=== PATIENT | female | born 1960 | race Caucasian/White ===

== ENCOUNTER 2019-11-18 08:04 | Outpatient (CLI) | payer OTHER, SELFPAY ==
--- NOTE | ~2019-11-18 | MM_ITS ---
EXAMINATION: MM screening jannie BI w guilherme HISTORY: Screening mammogram TECHNIQUE: Craniocaudal and mediolateral oblique 3-D tomosynthesis images were obtained and synthetic 2-D images were generated. CAD analysis was submitted and interpreted. COMPARISON: Comparison to multiple prior studies sequentially, with oldest reviewed study dated 06/2013. BREAST PARENCHYMAL COMPOSITION: The breasts are heterogeneously dense, which may obscure small masses . FINDINGS: There is a focal mass in the upper outer quadrant of the right breast measuringr approximat chaim 5 mm. The left breast is stable without evidence for malignancy. IMPRESSION: 1. New 5 mm mass right breast, upper outer quadrant. 2. Additional mammographic views and possible breast ultrasound are recommended. BI-RADS Category 0: Incomplete: Needs additional imaging evaluation. Reviewed, dictated and finalized at location A. IMPRESSION: 1. New 5 mm mass right breast, upper outer quadrant. 2. Additional mammographic views and possible breast ultrasound are recommended . BI-RADS Category 0: Incomplete: Needs additional imaging evaluation.
== END 2019-11-18 08:05 | disposition home or self-care (01) ==
PROVIDERS: PCP Family Medicine; Visit Provider Nurse Practitioner Family
DX: Z12.31 Encounter for screening mammogram for malignant neoplasm of breast (principal); R92.8 Other abnormal and inconclusive findings on diagnostic imaging of breast
CPT/HCPCS: 77063; 77067

== ENCOUNTER 2019-12-15 11:44 | Outpatient (CLI) | payer OTHER, SELFPAY ==
--- NOTE | ~2019-12-15 | MMUS_ITS ---
EXAMINATION: MM diagnostic mammo unilat RT, US breast RT complete HISTORY: New right 5 mm mass TECHNIQUE: Additional 3-D tomosynthesis images of the right breast were performed and synthetic 2-D i mages were generated. CAD analysis was submitted and interpreted. High resolution breast ultrasound w as performed. COMPARISON: 07/18/2018 bilateral digital screening mammogram FINDINGS: MAMMOGRAPHIC FINDINGS: 3.8 x 5.5 mm circumscribed low density opacity in the posterior aspect of the outer mid right breast. The mammographic appearance is benign. There is heterogeneously dense fibroglandular stroma, which may obscure masses. ULTRASOUND: 12:00 near nipple: 3.5 mm rounded sonolucency with through transmission, consistent with small cyst 3:00 subareolar area: Parallel circumscribed hypoechoic solid mass measuring 11.6 x 6 x 12 mm, with a djacent vascularity. Ultrasound-guided biopsy is recommended. 9:00 4 cm from nipple: Benign-appearing 4.7 x 3 x 5 mm lymph node IMPRESSION: 1. 12 mm solid lesion at 3:00 subareolar area; consider ultrasound-guided biopsy 2. Ultrasound-guided biopsy of 3:00 subareolar solid lesion is recommended BI-RADS Category 4A Reviewed, dictated and finalized at location A. IMPRESSION: 1. 12 mm solid lesion at 3:00 subareolar area; consider ultrasound-guided biops y 2. Ultrasound-guided biopsy of 3:00 subareolar solid lesion is recommended BI-RADS Category 4A
== END 2019-12-15 11:45 | disposition home or self-care (01) ==
PROVIDERS: PCP Family Medicine; Visit Provider Obstetrics & Gynecology Gynecology
DX: R92.8 Other abnormal and inconclusive findings on diagnostic imaging of breast (principal)
CPT/HCPCS: 76641; 77065

== ENCOUNTER → 2020-07-18 12:41 | Outpatient (CLI) | payer OTHER, SELFPAY ==
--- NOTE | ~2020-07-18 | CT_ITS ---
EXAMINATION: CT abdomen pelvis wo/w con DATE: 07/18/2020 13:28 INDICATION: Hematuria TECHNIQUE: Computed tomography (CT) of the abdomen and pelvis was performed without intravenous contr ast. CT of the abdomen and pelvis was then performed with a total of 130 mL Omnipaque 350 intravenous contrast using a double-bolus technique for simultaneous opacification of the renal parenchyma and r enal collecting system. The dose-length product (DLP) was 1163.76 mGy-cm. Automated exposure control and iterative reconstruction technique were employed. COMPARISON: None FINDINGS: The lung bases are clear. The heart size is normal. There is a 3 mm cyst in the liver dome. The pancreas, gallbladder, and adrenal glands are normal. This spleen is diminutive with multiple sp lenules, possibly related to prior trauma. There is a 3 mm nonobstructing stone of the left kidney lo wer pole. No stones are identified in the ureters or bladder. There is no hydronephrosis or hydrouret er. No suspicious renal or urothelial lesion is identified. There is a fat-containing umbilical herni a. Also seen is a small midline ventral hernia below the umbilicus containing fat. Moderate lumbar sp ondylosis is noted. No pathologically enlarged abdominal or pelvic lymph nodes are identified. There is no free intraperitoneal gas or evidence of bowel obstruction. IMPRESSION: 1. 3 mm nonobstructing left kidney stone. No suspicious renal or urothelial lesion identified. No hyd ronephrosis or hydroureter. Reviewed, dictated and finalized at location A. NESS CONTROL MANAGER IMPRESSION: 1. 3 mm nonobstructing left kidney stone. No suspicious renal or urothelial les ion identified. No hydronephrosis or hydroureter.
[2020-07-18 13:03] LABS: Estimated Glomerular Filt Rate > 60
== END ==
PROVIDERS: PCP Physician Assistant Medical; Visit Provider Nurse Practitioner Family
DX: R31.9 Hematuria, unspecified (principal); N20.0 Calculus of kidney
CPT/HCPCS: 74178; Q9967

== ENCOUNTER 2021-11-08 01:20 | Day surgery (SDC) | payer OTHER, SELFPAY ==
[2021-10-20 13:14] VITALS: BMI 20.5
--- NOTE | 2021-11-07 15:37 | PM.HPGS ---
History of Present Illness History of Present Illness Consent: Risks, benefits, and alternatives have been discussed and questions answered. Patient agrees to proceed with procedure. Chief complaint: neoplasm screening Narrative: Lidia Salguero is a 61 year old female who is referred for colon cancer screening. Her last colonoscopy was 13 years ago, at which time she had 1 adenomatous polyp removed. Review of Systems Review of Systems: All systems reviewed & are unremarkable except as noted in HPI and below PMFSH Past Medical History Medical History BMI 25.0-25.9,adult Surgical History Surgical History H/O section H/O splenectomy H/O: hysterectomy Family History Family History Mother Lymphoma Sibling Breast cancer Father Parkinson disease Social History Social History Smoking packs per day: 0.5 Smoking cigarettes per day: 10.0 Years smoked: 20 Smoking pack-years: 10.00 Smoking status: Former smoker Tobacco type: cigarettes Smoking end date: 05/20/07 Alcohol intake: current Alcohol use details: one drink per month Substance use: never Substance use type: does not use Living arrangements: alone 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 Gender identity (if verbalized by the patient): Female Spiritual care concerns: No Meds Home Medications and Allergies Home Medications Medication Instructions Recorded Confirmed Type No Home Medications 11/08/21 11/08/21 History Allergies Allergy/AdvReac Type Severity Reaction Status Date / Time No Known Allergies Allergy Unknown Verified 11/08/21 07:12 Exam Resp: Auscultation: clear to auscultation bilaterally Cardio: Rate: regular rate Rhythm: regular rhythm GI: GI Palp: Yes Soft to palpation and No Tenderness to palpation present (GI) Assessment and Plan Assessment and plan (1) Screening for malignant neoplasm of colon: Code(s): Z12.11 - Encounter for screening for malignant neoplasm of colon Status: Acute Assessment and Plan: Colonoscopy with possible biopsy or polypectomy or cautery or injection of substances.
[2021-11-08 07:14] VITALS: BP 149/81; PULSE 85; RESP 16; TEMP 36.4; O2SAT 99; BMI 20.7
[2021-11-08] MEDS: LACTATED RINGERS 1,000 ML 150 ML IV CONT (07:23)
--- NOTE | 2021-11-08 07:41 | WPDANESEPPF ---
Anes - Initial Pre Proc Eval Procedure: Operation Date: 11/08/21 08:45 Proposed Procedures p Screening Colonoscopy - Hank Bridges MD Date/Time: 11/08/21 07:41 Surgeon: Hank Bridges MD Pre Op Diagnosis: neoplasm screening Patient Data Age: 61 Gender: F Height: 1.75 m Weight: 63.5 kg Last Vital Signs Temp 36.4 C 11/08/21 07:14 Pulse 85 11/08/21 07:14 Resp 16 11/08/21 07:14 BP 149/81 H 11/08/21 07:14 Pulse Ox 99 11/08/21 07:14 O2 Del Method Room Air 11/08/21 07:14 Allergies Allergy/AdvReac Type Severity Reaction Status Date / Time No Known Allergies Allergy Unknown Verified 11/08/21 07:12 Home Medications Medication Instructions Recorded Confirmed Type No Home Medications 11/08/21 11/08/21 History Patient hx anesthesia problems: none Family hx anesthesia problems: none Results Review: All pre-operative results and documents have been reviewed as part of the pre-operative evaluation. [facility] Past Medical History Medical History BMI 25.0-25.9,adult Surgical History Surgical History H/O section H/O splenectomy H/O: hysterectomy Family History Family History Mother Lymphoma Sibling Breast cancer Father Parkinson disease Social History Social History Smoking packs per day: 0.5 Smoking cigarettes per day: 10.0 Years smoked: 20 Smoking pack-years: 10.00 Smoking status: Former smoker Tobacco type: cigarettes Smoking end date: 05/20/07 Alcohol intake: current Alcohol use details: one drink per month Substance use: never Substance use type: does not use Living arrangements: alone 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 Informed Consent: The patient's anesthetic plan and its attendant risks and benefits were discussed with the patient/family/POA. Questions were solicited and answers provided to the satisfaction of the patient/family/POA.
[2021-11-08 08:58] VITALS: BP 116/63; PULSE 74; RESP 17; O2SAT 98
[2021-11-08 09:08] VITALS: BP 138/88; PULSE 83; RESP 17; O2SAT 100
[2021-11-08 09:18] VITALS: BP 134/92; PULSE 83; RESP 19; O2SAT 100
--- NOTE | 2021-11-08 09:58 | SUR.PHASEII ---
pts had a drs appt, causing delay in picking up pt. left at [id number]
== END 2021-11-08 09:43 | disposition home or self-care (01) ==
PROVIDERS: PCP Family Medicine; Visit Provider Internal Medicine Gastroenterology
PROC: 0DJD8ZZ Inspection of Lower Intestinal Tract, Via Natural or Artificial Opening Endoscopic (ICD-10-PCS; CPT 45378; principal; 2021-11-08 08:45)
DX: Z12.11 Encounter for screening for malignant neoplasm of colon (principal); K64.8 Other hemorrhoids; K63.5 Polyp of colon; Z87.891 Personal history of nicotine dependence
CPT/HCPCS: 45380; 88305; J2704; J7120

== ENCOUNTER 2023-10-16 15:04 | Outpatient (CLI) | payer OTHER, SELFPAY ==
[2023-10-16 15:19] LABS: Basophils Absolute Auto 0.2 K/mm3 (0.0-0.1); Basophils Percent Auto 1.6 % (0.2-1.2); Eosinophils Absolute Auto 0.4 K/mm3 (0-0.3); Eosinophils Percent Auto 4.5 % (0-4.4); Hemoglobin 13.3 g/dL (12.0-15.0); Immature Granulocyte Absolute 0.02 K/mm3 (0.00-0.031); Immature Granulocyte Percent A 0.2 % (0-0.5); Lymphocytes Absolute Auto 2.82 K/mm3 (0.9-3.2); Lymphocytes Percent Auto 28.9 % (18.3-44.2); Mean Corpuscular HGB Conc 31.7 g/dl (32-36); Mean Corpuscular Volume 91.5 fl (80-100); Mean Platelet Volume 8.4 fl (7.4-10.4); Monocytes Absolute Auto 0.9 K/mm3 (0.1-0.6); Monocytes Percent Auto 9.1 % (2.6-8.5); Neutrophils Absolute Auto 5.4 K/mm3 (1.3-6.7); Neutrophils Percent Auto 55.7 % (45.5-73.1); Platelet Count Result 555 k/mm3 (150-375); Red Blood Count 4.59 M/mm3 (4.2-5.4); White Blood Count 9.8 K/mm3 (4.5-10.0)
[2023-10-16 16:55] LABS: Erythrocyte Sedimentation Rate 12 mm/hr (0-20)
[2023-10-16 18:41] LABS: Iron 62 ug/dL (37-170)
[2023-10-16 18:51] LABS: Percent Iron Saturation 16 % (20-50)
[2023-10-16 18:56] LABS: Alanine Aminotransferase 21 U/L (6-35); Albumin Level 4.6 g/dL (3.5-5.1); Alkaline Phosphatase 73 U/L (38-126); Anion Gap 10 mmol/L (4-12); Aspartate Amino Transferase 26 U/L (14-36); Bilirubin,Total 0.3 mg/dL (0.2-1.3); Blood Urea Nitrogen 19 mg/dL (7-17); CRP < 0.5 mg/dL (<1.0); Calcium 9.4 mg/dL (8.4-10.2); Carbon Dioxide 27 mmol/L (22-30); Chloride 104 mmol/L (98-107); Estimated Glomerular Filt Rate > 60; Glucose 98 mg/dL (65-110); Sodium 141 mmol/L (137-145)
[2023-10-24 00:18] LABS: Block/Specimen ID NG; JAK2 V617F Mutation NOT DETECTED (NOT DETECTED); Specimen Source BLOOD
== END 2023-10-16 15:05 | disposition home or self-care (01) ==
LOC: ANHLAB 15:06
PROVIDERS: Nurse Practitioner Family; PCP Family Medicine; Visit Provider Internal Medicine Hematology & Oncology
DX: D47.3 Essential (hemorrhagic) thrombocythemia (principal); D50.9 Iron deficiency anemia, unspecified
CPT/HCPCS: 36415; 80053; 81270; 82728; 83540; 83550; 85025; 85652; 86140

== ENCOUNTER 2023-12-24 13:03 | Outpatient (CLI) | payer OTHER, SELFPAY ==
[2023-12-24 13:16] LABS: Basophils Absolute Auto 0.1 K/mm3 (0.0-0.1); Basophils Percent Auto 1.3 % (0.2-1.2); Eosinophils Absolute Auto 0.3 K/mm3 (0-0.3); Eosinophils Percent Auto 3.6 % (0-4.4); Hematocrit 41.5 % (37.0-47.0); Hemoglobin 13.2 g/dL (12.0-15.0); Immature Granulocyte Absolute 0.03 K/mm3 (0.00-0.031); Immature Granulocyte Percent A 0.3 % (0-0.5); Lymphocytes Absolute Auto 3.13 K/mm3 (0.9-3.2); Lymphocytes Percent Auto 34.9 % (18.3-44.2); Mean Corpuscular HGB Conc 31.8 g/dl (32-36); Mean Corpuscular Hemoglobin 29.5 pg (26-34); Mean Corpuscular Volume 92.8 fl (80-100); Mean Platelet Volume 8.4 fl (7.4-10.4); Monocytes Absolute Auto 1.1 K/mm3 (0.1-0.6); Monocytes Percent Auto 12.5 % (2.6-8.5); Neutrophils Absolute Auto 4.3 K/mm3 (1.3-6.7); Neutrophils Percent Auto 47.4 % (45.5-73.1); Platelet Count Result 517 k/mm3 (150-375); Red Blood Count 4.47 M/mm3 (4.2-5.4); Red Cell Distribution Width 13.4 % (11.5-14.5)
[2023-12-24 16:36] LABS: Iron 98 ug/dL (37-170)
[2023-12-24 16:48] LABS: Percent Iron Saturation 26 % (20-50)
== END 2023-12-24 13:04 | disposition home or self-care (01) ==
LOC: ANHLAB 13:04
PROVIDERS: Nurse Practitioner Family; PCP Family Medicine; Visit Provider Internal Medicine Hematology & Oncology
DX: D47.3 Essential (hemorrhagic) thrombocythemia (principal)
CPT/HCPCS: 36415; 82728; 83540; 83550; 85025

== ENCOUNTER 2024-04-07 13:04 | Outpatient (CLI) | payer OTHER, SELFPAY ==
[2024-04-07 13:16] LABS: Basophils Absolute Auto 0.1 K/mm3 (0.0-0.1); Basophils Percent Auto 1.4 % (0.2-1.2); Eosinophils Absolute Auto 0.4 K/mm3 (0-0.3); Eosinophils Percent Auto 4.5 % (0-4.4); Hematocrit 41.2 % (37.0-47.0); Hemoglobin 13.3 g/dL (12.0-15.0); Immature Granulocyte Absolute 0.02 K/mm3 (0.00-0.031); Immature Granulocyte Percent A 0.2 % (0-0.5); Lymphocytes Absolute Auto 3.12 K/mm3 (0.9-3.2); Lymphocytes Percent Auto 36.6 % (18.3-44.2); Mean Corpuscular HGB Conc 32.3 g/dl (32-36); Mean Corpuscular Hemoglobin 29.1 pg (26-34); Mean Corpuscular Volume 90.2 fl (80-100); Mean Platelet Volume 8.2 fl (7.4-10.4); Monocytes Absolute Auto 0.8 K/mm3 (0.1-0.6); Monocytes Percent Auto 9.9 % (2.6-8.5); Neutrophils Percent Auto 47.4 % (45.5-73.1); Platelet Count Result 535 k/mm3 (150-375); Red Blood Count 4.57 M/mm3 (4.2-5.4); Red Cell Distribution Width 12.8 % (11.5-14.5); White Blood Count 8.5 K/mm3 (4.5-10.0)
[2024-04-07 13:21] LABS: Blood Urea Nitrogen 12 mg/dL (8-26); Carbon Dioxide 25 mmol/L (22-30); Chloride 101 mmol/L (98-109); Estimated Glomerular Filt Rate > 60; Glucose 106 mg/dL (70-105); Ionized Calcium (POC) 1.16 mmol/L (1.11-1.31); Potassium 3.7 mmol/L (3.5-4.9); Sodium 140 mmol/L (138-146)
== END 2024-04-07 13:05 | disposition home or self-care (01) ==
LOC: ANHLAB 13:05
PROVIDERS: PCP Family Medicine; Visit Provider Internal Medicine Hematology & Oncology
DX: D47.3 Essential (hemorrhagic) thrombocythemia (principal)
CPT/HCPCS: 36415; 80047; 85025

== ENCOUNTER 2024-09-15 14:40 | Outpatient (CLI) | payer OTHER, SELFPAY ==
--- NOTE | ~2024-09-15 | XR_ITS ---
Left Shoulder Technique: AP and scapular Y views were obtained. Clinical History: Pain Findings: No fracture or dislocation is seen. Osseous alignment is anatomic. The glenohumeral and acr omioclavicular joint spaces are preserved. Soft tissues are unremarkable. Impression: Unremarkable left shoulder radiographs. Reviewed, dictated and finalized at [facility]. Impression: Unremarkable left shoulder radiographs.
--- NOTE | ~2024-09-15 | XR_ITS ---
XR cervical spine 4-5V 09/15/2024 15:07 Indication: Neck pain Procedure: 5 views cervical spine Comparison: No prior studies for comparison. Findings: Vertebral body heights are maintained. No prevertebral soft tissue abnormality. Severe mult ilevel facet and uncinate hypertrophy. Lung apices are normal. Odontoid process is normal. Impression: 1: Severe cervical spondylosis. Reviewed, dictated and finalized at location A. Impression: 1: Severe cervical spondylosis.
--- OUTSIDE RECORDS SUMMARY | 2024-09-15 17:04 | XMS_ITS | Clinical Summary ---
Author Organization [facility] Address [address] [place] [address] Care Team Providers Care Carpenter Cradle And Dolly Name Role Phone Gallo Byrd MD Primary Care Provider [phone] Source Comments [facility],non-owned Affiliates and Associated Physician Practices is amultiple site organization consisting of ambulatory clinics and hospital sitesin [place], [place] and [place]. This disclosure is being madepursuant to the Care Everywhere program and may not contain all information available regarding this patient. Last updated 18.[employer] [facility] Allergies No known active allergies Medications * Be aware that medications may not be up to date on this document. Alwaysverify current medications with the patient. No known medications Social History Tobacco Use Types Packs/Day Years Used Date Smoking Tobacco: Never Smokeless Tobacco: Never Comments No Sex and Gender Information Value Date Recorded Sex Assigned at Not on file Legal Sex Female 3:46 PM MEDICARE COORDINATOR Gender Identity Not on file Sexual Orientation Not on file Last Filed Vital Signs Vital Sign Reading Time Taken Comments Blood Pressure 116/76 06/30/2018 4:15 PM MEDICARE COORDINATOR Pulse 108 06/30/2018 4:15 PM MEDICARE COORDINATOR Temperature 37.2 C (98.9 F) 06/30/2018 4:15 PM MEDICARE COORDINATOR Respiratory Rate 19 06/30/2018 4:15 PM MEDICARE COORDINATOR Oxygen Saturation 98% 06/30/2018 4:15 PM MEDICARE COORDINATOR Inhaled Oxygen Concentration - - Weight 61.2 kg (135 lb) 06/30/2018 4:15 PM MEDICARE COORDINATOR Height 162.6 cm (5' 4 ) 06/30/2018 4:15 PM MEDICARE COORDINATOR Body Mass Index 23.17 06/30/2018 4:15 PM MEDICARE COORDINATOR Plan of Treatment Health Maintenance Due Date Last Done Comments COLOGUARD (AGES 45-75) - COL ON CA SCREENING 1962 COLON MONITORING 1962 COLONOSCOPY - COLON CA SCREENING 1962 CT COLONOGRAPHY - COLON CA SCREENING 1962 Colorectal Cancer Screening 1962 FIT - COLON CA SCREENING 1962 FLEX SIG - COLON CA SCREENING 1962 LIPID TESTING 1962 MAMMOGRAM 1962 HIV SCREENING 1977 HEPATITIS C SCREENING 05/02/1980 DTAP/TDAP/TD VACCINES (1 - Tdap) 1981 PNEUMOCOCCAL VACCINE 50+ (1 of 1 - PCV) 2012 ZOSTER VACCINE (1 of 2) 2012 COVID-19 VACCINE ( - 2023-2 5 season) 2024 DEPRESSION SCREENING 05/20/2024 INFLUENZA VACCINE (Season Ended) 2025 Respiratory Syncytial Virus (RSV) Vaccine Pt: or over 60 yrs (1 - 1-dose 75+ series) 2037 HEPATITIS B VACCINE Aged Out No longe r eligible based on patient's age to complete this topic HIB VACCINE Aged Out No longer eligi ble based on patient's age to complete this topic HPV VACCINE Aged Out No longer eligi ble based on patient's age to complete this topic MENINGOCOCCAL (Group B) VACC INE SHARED DECISION-MAKING Aged Out No longer eligibl e based on patient's age to complete this topic MENINGOCOCCAL GROUPS A/C/Y/W VACCINE Aged Out No longer eligible b ased on patient's age to complete this topic Insurance [place] [address] Care Teams Carpenter Cradle And Dolly Relationship Specialty Start Date End Date Gallo Byrd MD [address] [place] [address] PCP - General 11/13/21
--- OUTSIDE RECORDS SUMMARY | 2024-09-15 17:04 | XMS_ITS | Clinical Summary ---
Author Organization [facility] Address [address] [place] [address] [place] [address] Care Team Providers Care Ball Shagger Name Role Phone Gallo Byrd MD Primary Care Provider [phone] Allergies No known active allergies Medications aspirin (ECOTRIN EC) 81 mg Tablet, Delayed Release (E.C.) Take 81 mg by mouth daily. Active multivitamin,tx- iron-ca-min (THERA-M) 27-0.4 mg Tablet Take 1 Tablet by mouth daily. Active Active Problems No known active problems Encounters Date Type Department Care Team Description 08/18/2024 External Device Data ST[facility] ABSTRACTION Provider, Abstract 08/05/2024 External Device Data STL ABSTRACTION Provider, Abstract 07/29/2024 External Device Data STL ABSTRACTION Provider, Abstract 07/28/2024 External Device Data STL ABSTRACTION Provider, Abstract 07/27/2024 External Device Data STL ABSTRACTION Provider, Abstract 07/25/2024 External Device Data STL ABSTRACTION Provider, Abstract 07/24/2024 External Device Data STL ABSTRACTION Provider, Abstract 07/22/2024 External Device Data STL ABSTRACTION Provider, Abstract 07/08/2024 External Device Data STL ABSTRACTION Provider, Abstract 07/08/2024 External Device Data STL ABSTRACTION Provider, Abstract from Last 3 Months Family History Medical History Relation Name Comments No Known Problems Brother No Known Problems Child 1 No Known Problems Child 2 No Known Problems Father Lymphoma Mother Breast Cancer Sister Relation Name Status Comments Brother Alive Child 1 Alive Child 2 Alive Father Mother Sister Social History Tobacco Use Types Packs/Day Years Used Date Smoking Tobacco: Former Cigarettes 0.5 20 Q uit: 10/16/2003 Tobacco Cessation:Counseling Given: Not Answered Alcohol Use Standard Drinks/Week Comments Yes 0 (1 standard drink = 0.6 oz pur e alcohol) socially Comments Unknown Sex and Gender Information Value Date Recorded Sex Assigned at Not on file Legal Sex Female 10:36 AM CDT Gender Identity Not on file Sexual Orientation Not on file Last Filed Vital Signs Vital Sign Reading Time Taken Comments Blood Pressure 140/85 04/07/2024 1:30 PM HASHER MACHINE OPERATOR Pulse 80 04/07/2024 1:28 PM HASHER MACHINE OPERATOR Temperature 36.8 C (98.2 F) 04/07/2024 1:28 PM HASHER MACHINE OPERATOR Respiratory Rate 15 04/07/2024 1:28 PM HASHER MACHINE OPERATOR Oxygen Saturation 95% 04/07/2024 1:28 PM HASHER MACHINE OPERATOR Inhaled Oxygen Concentration - - Weight 63.3 kg (139 lb 9.6 oz) 04/07/2024 1:28 P M HASHER MACHINE OPERATOR Height 154.9 cm (5' 1 ) 10/16/2023 2:23 PM CDT Body Mass Index 26.38 10/16/2023 2:23 PM CDT Plan of Treatment Upcoming Encounters Date Type Department Care Team (Late st Contact Info) Description 10/05/2024 1:15 PM CDT Office Visit [facility] [place] [address] [facility] [address] [place] [address] Santy Layton MD [address] [facility] [place] [address] Health Maintenance Due Date Last Done Comments Pre-Diabetes and Diabetes Screening 1962 DTAP/TDAP/TD VACCINES (1 - Tdap) 1981 COLORECTAL SCREENING 2007 Colorectal Cancer Screening 2007 FIT-DNA Q 3 years 2007 FIT/FOBT Q 1 year 2007 Flex Sig/CT Colonography Q 5 years 2007 ZOSTER VACCINE (1 of 2) 2012 INFLUENZA VACCINE (#1) 2023 BREAST CANCER SCREENING 01/19/2024 01/19/20 23, 12/19/2022, 12/19/2022, Additional history exists RSV VACCINE (60+ or ) (1 - 1-dose 75+ series) 2037 Insurance [facility] [id number] Care Teams Ball Shagger Relationship Specialty Start Date End Date Gallo Byrd MD [address] [place] [id number] PCP - General Family Practice 10/01/23
== END 2024-09-15 14:41 | disposition home or self-care (01) ==
PROVIDERS: PCP Family Medicine; Visit Provider Physician Assistant Medical
DX: M47.812 Spondylosis without myelopathy or radiculopathy, cervical region (principal); M25.512 Pain in left shoulder
CPT/HCPCS: 72050; 73030

== ENCOUNTER 2024-10-05 12:36 | Outpatient (CLI) | payer OTHER, SELFPAY ==
--- OUTSIDE RECORDS SUMMARY | 2024-10-05 12:44 | XMS_ITS | Referral Summary ---
Author Organization [facility] Address [address] [place] [address] Care Team Providers Care Trim Sawyer Name Role Phone Gallo Byrd MD Primary Care Provider [phone] Marj Menendez MD Unavailable [phone] Allergies No known active allergies Medications No known medications Active Problems Problem Noted Date Diagnosed Date Abnormal mammography 08/01/2020 Mass of breast 11/15/2009 Social History Tobacco Use Types Packs/Day Years Used Date Smoking Tobacco: Former Comments Unknown Sex and Gender Information Value Date Recorded Sex Assigned at Not on file Legal Sex Female 9:14 AM SLICE PLUG CUTTER OPERATOR HELPER Gender Identity Not on file Sexual Orientation Not on file Last Filed Vital Signs Vital Sign Reading Time Taken Comments Blood Pressure - - Pulse - - Temperature - - Respiratory Rate - - Oxygen Saturation - - Inhaled Oxygen Concentration - - Weight 67.1 kg (147 lb 14.9 oz) 09/28/2021 8:19 AM CDT Height 162.6 cm (5' 4 ) 09/28/2021 8:19 AM CDT Body Mass Index 25.39 09/28/2021 8:19 AM CDT Plan of Treatment Not on file Procedures Procedure Name Priority Date/Time Associated Diagnosis Comments SCREENING MAMMOGRAM BILATERAL W JAMES Schedule Routine, Read Routine (OP Routine) 04/28/2024 1:34 PM SLICE PLUG CUTTER OPERATOR HELPER Screening mammogram, encounter for from Last 3 Months or Most Recently Relevant to Health Maintenance Results * Screening Mammogram Bilateral W James (04/28/2024 1:34 PM SLICE PLUG CUTTER OPERATOR HELPER) Anatomical Region Laterality Modality Breast Bilateral Mammography Narrative 04/29/2024 1:32 PM SLICE PLUG CUTTER OPERATOR HELPER Mammogram Technique: Bilateral Digital Breast Tomosynthesis, Bilateral C-view 2D Screening mammogram. Views obtained: bilateral craniocaudal and bilateral mediolateral oblique. Computer Aided Detection was performed. Mammogram Findings: The present examination has been compared to prior imaging studies performed on 11/18/2019 and 12/15/2019, and at [facility] on 01/04/2020, 02/06/2021, 12/19/2022 and 01/18/2023. The breasts are heterogeneously dense, which may obscure small masses. There is no suspicious abnormality in either breast. There are no significant changes from the prior study. Impression: There is no mammographic evidence of malignancy. Annual screening mammography is recommended. If supplemental screening is desired, breast MRI would be recommended in this patient with heterogeneously dense breasts. OVERALL FINAL ASSESSMENT: BI-RADS CATEGORY 1: Negative. Procedure Note Roslyn Kan MD - 04/29/2024 Mammogram Technique: Bilateral Digital Breast Tomosynthesis, Bilateral C-view 2D Screening mammogram. Views obtained: bilateral craniocaudal and bilateral mediolateral oblique. Computer Aided Detection was performed. Mammogram Findings: The present examination has been compared to prior imaging studies performed on 11/18/2019 and 12/15/2019, and at [facility] on 01/04/2020, 02/06/2021, 12/19/2022 and 01/18/2023. The breasts are heterogeneously dense, which may obscure small masses. There is no suspicious abnormality in either breast. There are no significant changes from the prior study. Impression: There is no mammographic evidence of malignancy. Annual screening mammography is recommended. If supplemental screeningis desired, breast MRI would be recommended in this patient with heterogeneously dense breasts. OVERALL FINAL ASSESSMENT: BI-RADS CATEGORY 1: Negative. us Self Screening Mammogram IMG MAMMO PROCEDURES Fi nal Result from Last 3 Months or Most Recently Relevant to Health Maintenance Insurance [facility] HMO [facility] Care Teams Trim Sawyer Relationship Specialty Start Date End Date Gallo Byrd MD PCP - General Family Medicine 12/15/19 Marj Menendez MD [address] [address] Referring Physician Gynecology 10/13/20
--- OUTSIDE RECORDS SUMMARY | 2024-10-05 12:44 | XMS_ITS | Clinical Summary ---
Author Organization [facility] Address [address] [place] [address] Care Team Providers Care Inward Toll Operator Name Role Phone Gallo Byrd MD Primary Care Provider [phone] Source Comments [facility],non-owned Affiliates and Associated Physician Practices is amultiple site organization consisting of ambulatory clinics and hospital sitesin [place], [place], [place] and [place]. This disclosure is being madepursuant to the Care Everywhere program and may not contain all information available regarding this patient. Last updated 18.[employer] [facility] Allergies No known active allergies Medications * [...] on file Legal Sex Female 3:46 PM ELEMENT SETTER Gender Identity Not on file Sexual Orientation Not on file Last Filed Vital Signs Vital Sign Reading Time Taken Comments Blood Pressure 116/76 06/30/2018 4:15 PM ELEMENT SETTER Pulse 108 06/30/2018 4:15 PM ELEMENT SETTER Temperature 37.2 C (98.9 F) 06/30/2018 4:15 PM ELEMENT SETTER Respiratory Rate 19 06/30/2018 4:15 PM ELEMENT SETTER Oxygen Saturation 98% 06/30/2018 4:15 PM ELEMENT SETTER Inhaled Oxygen Concentration - - Weight 61.2 kg (135 lb) 06/30/2018 4:15 PM ELEMENT SETTER Height 162.6 cm (5' 4 ) 06/30/2018 4:15 PM ELEMENT SETTER Body Mass Index 23.17 06/30/2018 4:15 PM ELEMENT SETTER Plan of Treatment Health Maintenance Due Date [...] patient's age to complete this topic Insurance [facility] [place] [address] Care Teams Inward Toll Operator Relationship Specialty Start Date End Date Gallo Byrd MD [address] [place] [address] PCP - General 11/13/21
--- OUTSIDE RECORDS SUMMARY | 2024-10-05 12:44 | XMS_ITS | Clinical Summary ---
Author Organization [facility] Address [address] [place] [address] [place] [address] Care Team Providers Care Senior Drupal Developer Name Role Phone Gallo Byrd MD Primary Care Provider [phone] Allergies No known active allergies Medications aspirin [...] Comments Blood Pressure 140/85 04/07/2024 1:30 PM BEHAVIORAL SCIENCES INSTRUCTOR Pulse 80 04/07/2024 1:28 PM BEHAVIORAL SCIENCES INSTRUCTOR Temperature 36.8 C (98.2 F) 04/07/2024 1:28 PM BEHAVIORAL SCIENCES INSTRUCTOR Respiratory Rate 15 04/07/2024 1:28 PM BEHAVIORAL SCIENCES INSTRUCTOR Oxygen Saturation 95% 04/07/2024 1:28 PM BEHAVIORAL SCIENCES INSTRUCTOR Inhaled Oxygen Concentration - - Weight 63.3 kg (139 lb 9.6 oz) 04/07/2024 1:28 P M BEHAVIORAL SCIENCES INSTRUCTOR Height 154.9 cm (5' 1 ) 10/16/2023 2:23 PM CDT Body Mass Index 26.38 10/16/2023 2:23 PM CDT Plan of Treatment Upcoming Encounters Date Type Department Care Team (Late st Contact Info) Description 10/05/2024 1:15 PM CDT Office Visit [facility] [place] [address] [facility] [address] [place] [address] Santy Layton MD [address] [facility] [address] [place] [address] Health Maintenance Due Date Last [...] (1 - 1-dose 75+ series) 2037 Insurance [facility] [id number] Care Teams Senior Drupal Developer Relationship Specialty Start Date End Date Gallo Byrd MD [address] [place] [id number] PCP - General Family Practice 10/01/23
--- OUTSIDE RECORDS SUMMARY | 2024-10-05 12:44 | XMS_ITS | Clinical Summary ---
Author Organization [facility] Address [address] [place] [address] Care Team Providers Care Pool Player Name Role Phone Gallo Byrd MD Primary Care Provider [phone] Marj Menendez MD Unavailable [phone] Allergies No known active allergies Medications No known medications Active Problems Problem Noted Date Diagnosed Date Abnormal mammography 08/01/2020 Mass of breast 11/15/2009 Family History Medical History Relation Name Comments Lymphoma Mother Family history of lymphoma - (Added by TW Conv) Breast cancer Sister Relation Name Status Comments Mother Sister Social History Tobacco Use Types Packs/Day Years Used Date Smoking Tobacco: Former Comments Unknown Sex and Gender Information Value Date Recorded Sex Assigned at Not on file 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 Gender Identity Not on file Sexual Orientation Not on file Obstetrics History Last Filed Vital Signs Vital Sign Reading [...] 09/28/2021 8:19 AM CDT Plan of Treatment Health Maintenance Due Date Last Done Comments Cervical Cancer Screening 1962 Colon Cancer Screening-Colonoscopy 1962 Depression Screening 1962 Hepatitis C Screening 1962 DTaP/Tdap/Td Vaccine (1 - Tdap) 1973 Hepatitis B Screening 1980 Regular Well Visit/Exam 18-64 1980 Influenza Vaccine (#1) 2024 9, 01/28/2018, 12/26/2016 Breast Cancer Screening-Mammogram 04/28/2025 04/28/2024, 12/19/2022, 02/06/2021 Zoster Vaccine Completed 12/04/2017, 09/09/2017 Pneumococcal vaccine <65 Aged Out No longer eligible based on patient's age to complete this topic Procedures Procedure Name Priority Date/Time Associated Diagnosis Comments SCREENING MAMMOGRAM BILATERAL W JAMES Schedule Routine, Read Routine (OP Routine) 04/28/2024 1:34 PM 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 Views obtained: bilateral craniocaudal and bilateral mediolateral oblique. Computer Aided Detection was performed. Mammogram Findings: The present examination has been compared to prior imaging studies performed on 11/18/2019 and 12/15/2019, and at [facility] on 01/04/2020, 02/06/2021, 12/19/2022 and 01/18/2023. The [...] performed on 11/18/2019 and 12/15/2019, and at [facility] on 01/04/2020, 02/06/2021, 12/19/2022 and 01/18/2023. The [...] Most Recently Relevant to Health Maintenance Insurance [facility] Care Teams Pool Player Relationship Specialty Start Date End Date Gallo Byrd MD PCP - General Family Medicine 12/15/19 Marj Menendez MD [address] [place] [address] Referring Physician Gynecology 10/13/20
[2024-10-05 12:58] LABS: Hematocrit 41.3 % (37.0-47.0); Hemoglobin 12.8 g/dL (12.0-15.0); Mean Corpuscular Volume 93.7 fl (80-100); Mean Platelet Volume 8.4 fl (7.4-10.4); Platelet Count Result 509 k/mm3 (150-375); Red Blood Count 4.41 M/mm3 (4.2-5.4); Red Cell Distribution Width 13.1 % (11.5-14.5); White Blood Count 9.8 K/mm3 (4.5-10.0)
[2024-10-05 13:09] LABS: Anion Gap 7 mmol/L (4-12); Blood Urea Nitrogen 23 mg/dL (7-17); Calcium 8.8 mg/dL (8.4-10.2); Carbon Dioxide 27 mmol/L (22-30); Chloride 105 mmol/L (98-107); Estimated Glomerular Filt Rate > 60; Glucose 101 mg/dL (65-110); Sodium 139 mmol/L (137-145)
== END 2024-10-05 12:37 | disposition home or self-care (01) ==
PROVIDERS: PCP Family Medicine; Visit Provider Internal Medicine Hematology & Oncology
DX: D47.3 Essential (hemorrhagic) thrombocythemia (principal)
CPT/HCPCS: 36415; 80048; 85027